=== PATIENT | female | born 1955 | race Two or more races ===

== ENCOUNTER → 2018-10-22 | Outpatient (CLI) | payer OTHER ==
[2018-10-22 12:43] LABS: Urine WBC None Seen /hpf (0 - 5)
[2018-10-22 12:47] LABS: Basophils # (auto) 0 uL; Basophils % (auto) 0.6 % (0.0-2.0); Eosinophils # (auto) 0.1 uL; Eosinophils % (auto) 1.8 % (0.0-7.0); Hematocrit 42.6 % (36.0-46.0); Hemoglobin 13.8 g/dL (12.2-16.2); Lymphocytes # (auto) 1.4 uL; Lymphocytes % (auto) 32.2 % (10.0-50.0); Mean Corpuscular Hemoglobin 28.7 pg (28.0-32.0); Mean Corpuscular Hgb Conc. 32.5 g/dL (32.0-36.0); Mean Corpuscular Volume 88.4 fL (80.0-100.0); Monocytes # (auto) 0.2 uL; Monocytes % (auto) 5.1 % (0.0-12.0); Neutrophils # (auto) 2.5 uL; Neutrophils % (auto) 60.3 % (37.0-80.0); Nucleated Red Blood Cells % 0.2 %; Platelet Count (auto) 263 10^3/uL (140-450); Red Blood Cells 4.82 10^6/uL (4.0-5.20); Red Cell Distribution Width 13.6 % (11.8-14.3); White Blood Cell 4.2 10^3/uL (4.4-10.8)
[2018-10-22 12:59] LABS: Urine Bacteria NONE SEEN /hpf (None Seen); Urine Blood Negative /uL (Negative); Urine Mucus FEW (None Seen); Urine Specific Gravity 1.018 (1.001-1.035)
[2018-10-22 15:22] LABS: Albumin 3.5 g/dL (3.4-5.0); BUN/Creatinine Ratio 15.9; Calcium 8.4 mg/dL (8.5-10.1); Potassium 3.9 mmol/L (3.5-5.1)
[2018-10-22 15:25] LABS: Bilirubin, Total 0.6 mg/dL (0.2-1.0); Total Protein 7.9 g/dL (6.4-8.2)
== END | disposition home or self-care (01) ==
LOC: LAB 12:28
PROVIDERS: ATTEND Family Medicine
DX: Z00.01 Encounter for general adult medical examination with abnormal findings (principal); I10 Essential (primary) hypertension; Z68.39 Body mass index [BMI] 39.0-39.9, adult; Z83.3 Family history of diabetes mellitus; Z87.898 Personal history of other specified conditions; Z82.49 Family history of ischemic heart disease and other diseases of the circulatory system
CPT/HCPCS: 36415; 80053; 80061; 81001; 82306; 83036; 84443; 85025

== ENCOUNTER 2019-12-08 23:53 | Emergency (ER) | payer OTHER ==
[~2019-12-08] VITALS: Ht 165.1 cm; Wt 85.7 kg
[2019-12-09 00:12] VITALS: BP 156/92
== END 2019-12-09 04:15 | disposition home or self-care (01) ==
LOC: ER 23:55
DX: S01.01XA Laceration without foreign body of scalp, initial encounter (principal); I10 Essential (primary) hypertension; Z90.49 Acquired absence of other specified parts of digestive tract; Z90.710 Acquired absence of both cervix and uterus; W20.8XXA Other cause of strike by thrown, projected or falling object, initial encounter; Y93.89 Activity, other specified; Y92.89 Other specified places as the place of occurrence of the external cause; Y99.8 Other external cause status
CPT/HCPCS: 70450

== ENCOUNTER → 2020-08-12 | Outpatient (CLI) | payer OTHER ==
[2020-08-13 05:10] LABS: RPR Non Reactive (Non Reactive)
[2020-08-15 11:55] LABS: Hepatitis A Ab IgM Negative; Hepatitis B Core IgM Negative; Hepatitis B Surface Antigen Negative (Negative); Hepatitis C Antibody Negative (Negative)
== END | disposition home or self-care (01) ==
LOC: LAB 11:18
PROVIDERS: ATTEND Nurse Practitioner Family
DX: Z11.3 Encounter for screening for infections with a predominantly sexual mode of transmission (principal); R30.9 Painful micturition, unspecified; Z72.53 High risk bisexual behavior
CPT/HCPCS: 36415; 80074; 86592; 86703

== ENCOUNTER → 2020-09-19 | Outpatient (CLI) | payer OTHER ==
[2020-09-19 12:51] LABS: Basophils # (auto) 0.1 10 ^3/uL (0-0.2); Basophils % (auto) 1.2 % (0.0-2.0); Eosinophils # (auto) 0.2 10 ^3/uL (0-0.8); Hematocrit 42.9 % (36.0-46.0); Hemoglobin 14.1 g/dL (12.2-16.2); Lymphocytes # (auto) 1.9 10 ^3/uL (0.4-5.4); Lymphocytes % (auto) 35.6 % (10.0-50.0); Mean Corpuscular Hemoglobin 28.6 pg (28.0-32.0); Mean Corpuscular Hgb Conc. 32.8 g/dL (32.0-36.0); Mean Corpuscular Volume 87.1 fL (80.0-100.0); Monocytes # (auto) 0.2 10 ^3/uL (0-1.3); Monocytes % (auto) 4.1 % (0.0-12.0); Neutrophils # (auto) 2.9 10 ^3/uL (1.6-8.6); Neutrophils % (auto) 56.1 % (37.0-80.0); Nucleated Red Blood Cells % 0.2 %; Platelet Count (auto) 280 10^3/uL (140-450); Red Blood Cells 4.92 10^6/uL (4.0-5.20); Red Cell Distribution Width 13.9 % (11.8-14.3); White Blood Cell 5.2 10^3/uL (4.4-10.8)
[2020-09-19 13:02] LABS: Urine Bacteria FEW /hpf (None Seen); Urine Blood Negative /uL (Negative); Urine Mucus FEW (None Seen); Urine Specific Gravity 1.015 (1.001-1.035); Urine WBC 1 /hpf (0 - 5)
[2020-09-19 13:21] LABS: Albumin 3.7 g/dL (3.4-5.0); Calcium 9.1 mg/dL (8.5-10.1); Potassium 4.2 mmol/L (3.5-5.1)
[2020-09-19 13:25] LABS: BUN/Creatinine Ratio 11.8; Bilirubin, Total 0.7 mg/dL (0.2-1.0); Total Protein 8.6 g/dL (6.4-8.2)
== END | disposition home or self-care (01) ==
LOC: LAB 12:28
PROVIDERS: ATTEND Family Medicine
DX: I10 Essential (primary) hypertension (principal); E66.09 Other obesity due to excess calories; F33.0 Major depressive disorder, recurrent, mild; E55.9 Vitamin D deficiency, unspecified; R32 Unspecified urinary incontinence; Z83.3 Family history of diabetes mellitus; Z82.49 Family history of ischemic heart disease and other diseases of the circulatory system; Z87.09 Personal history of other diseases of the respiratory system
CPT/HCPCS: 36415; 80053; 80061; 81001; 82306; 83036; 84443; 85025

== ENCOUNTER 2020-10-17 10:47 | Emergency (ER) | payer MEDICARE, OTHER ==
[~2020-10-17] VITALS: Ht 165.1 cm; Wt 85.7 kg
[2020-10-17 11:45] VITALS: BP 113/56
== END 2020-10-17 14:04 | disposition home or self-care (01) ==
LOC: ER 10:47
DX: U07.1 COVID-19 (principal); J12.89 Other viral pneumonia; I10 Essential (primary) hypertension
CPT/HCPCS: 71045

== ENCOUNTER 2020-10-25 17:35 | Emergency (ER) | payer MEDICARE, OTHER ==
[~2020-10-25] VITALS: Ht 165.1 cm; Wt 86.2 kg
[2020-10-25 17:37] VITALS: BP 118/65
== END 2020-10-25 20:32 | disposition home or self-care (01) ==
LOC: ER 17:37
DX: U07.1 COVID-19 (principal); R06.02 Shortness of breath; R05 Cough; I10 Essential (primary) hypertension; Z90.49 Acquired absence of other specified parts of digestive tract; Z90.710 Acquired absence of both cervix and uterus

== ENCOUNTER 2021-04-16 17:05 | Emergency (ER) | payer MEDICARE, OTHER ==
[~2021-04-16] VITALS: Ht 165.1 cm; Wt 105.2 kg
[2021-04-16 20:00] VITALS: BP 149/83
== END 2021-04-16 20:30 | disposition home or self-care (01) ==
LOC: ER 17:06
DX: S22.089A Unspecified fracture of T11-T12 vertebra, initial encounter for closed fracture (principal); S32.029A Unspecified fracture of second lumbar vertebra, initial encounter for closed fracture; I10 Essential (primary) hypertension; Z90.49 Acquired absence of other specified parts of digestive tract; Z90.710 Acquired absence of both cervix and uterus; W18.39XA Other fall on same level, initial encounter; Y93.01 Activity, walking, marching and hiking; Y92.89 Other specified places as the place of occurrence of the external cause; Y99.8 Other external cause status
CPT/HCPCS: 72040; 72100

== ENCOUNTER → 2021-11-28 | Outpatient (CLI) | payer MEDICARE, OTHER | END | disposition home or self-care (01) | LOC: XYW 13:40 | PROVIDERS: ATTEND Internal Medicine | DX: I07.1 Rheumatic tricuspid insufficiency (principal); I05.0 Rheumatic mitral stenosis; I35.0 Nonrheumatic aortic (valve) stenosis | CPT/HCPCS: 93306 ==

== ENCOUNTER → 2021-12-04 | Outpatient (CLI) | payer MEDICARE, OTHER ==
[~2021-12-04] VITALS: Ht 160 cm; Wt 106.6 kg
[~2021-12-04] MED LIST: ADENOSINE 90 MG in GIVE UN-DILUTED 0 ML IV STA
[2021-12-04 11:04] VITALS: BP 140/82
== END | disposition home or self-care (01) ==
LOC: XY 09:38
PROVIDERS: ATTEND Internal Medicine
DX: R06.02 Shortness of breath (principal); I10 Essential (primary) hypertension; E78.5 Hyperlipidemia, unspecified; Z68.38 Body mass index [BMI] 38.0-38.9, adult
CPT/HCPCS: 78452; 93017; A9500; J0153

== ENCOUNTER → 2022-06-22 | Outpatient (CLI) | payer MEDICARE, OTHER ==
[~2022-06-22] MED LIST changes: -ADENOSINE 90 MG in GIVE UN-DILUTED 0 ML IV STA; +ALBUTEROL SULF 2.5 MG/0.5ML(0.5%) NEB SOLN ONE
== END | disposition home or self-care (01) ==
LOC: RT 09:15
PROVIDERS: ATTEND Internal Medicine Pulmonary Disease
DX: R06.02 Shortness of breath (principal); R05.9 Cough, unspecified
CPT/HCPCS: 94060; 94727; 94729

== ENCOUNTER 2023-10-10 11:20 | Emergency (ER) | payer MEDICARE, OTHER ==
[~2023-10-10] VITALS: Ht 165.1 cm; Wt 105.0 kg
[2023-10-10] MEDS ORDERED: TRAM50TA2 PO (15:01)
[2023-10-10 15:10] VITALS: BP 154/97; PULSE 81; RESP 14; TEMP 97.5; O2SAT 98
== END 2023-10-10 15:24 | disposition home or self-care (01) ==
LOC: ER 11:20
DX: M71.22 Synovial cyst of popliteal space [Baker], left knee (principal); G89.29 Other chronic pain; M54.50 Low back pain, unspecified; I10 Essential (primary) hypertension; Z90.49 Acquired absence of other specified parts of digestive tract; Z90.710 Acquired absence of both cervix and uterus; Z79.899 Other long term (current) drug therapy
CPT/HCPCS: 72100; 93971

== ENCOUNTER 2025-04-07 10:55 | Outpatient (CLI) | payer MEDICARE, OTHER ==
[~2025-04-07 10:55] MED LIST changes: -ALBUTEROL SULF 2.5 MG/0.5ML(0.5%) NEB SOLN ONE; +TRAM50TA2 PO
[2025-04-07 11:22] LABS: Urine Bacteria FEW /hpf (None Seen); Urine Blood Negative /uL (Negative); Urine Clarity Clear (Clear); Urine Color Light-Yellow (Yellow); Urine Protein, UAD Negative (Negative); Urine Specific Gravity 1.016 (1.001-1.035); Urine Squamous Epithelial Cell FEW /hpf (<5); Urine Urobilinogen Normal (Negative); Urine WBC 1 /HPF (0-5)
[2025-04-07 11:39] LABS: Alanine Aminotransferase 17 U/L (7-40); Albumin 4.3 g/dL (3.2-4.8); Anion Gap 6 (5-15); Aspartate Aminotransferase 13 U/L (13-40); BUN/Creatinine Ratio 13.3 (10.0-20.0); Blood Urea Nitrogen 12 mg/dL (9-23); Calcium 9.7 mg/dL (8.7-10.4); Carbon Dioxide 27 mmol/L (20-31); Glucose 91 mg/dL (74-106); Potassium 4.2 mmol/L (3.5-5.1); Sodium 144 mmol/L (136-145); Total Protein 7.4 g/dL (5.7-8.2); Triglycerides 125 mg/dL (< 150)
[2025-04-07 11:40] LABS: Bilirubin, Total 0.4 mg/dL (0.2-1.0); Cholesterol 190 mg/dL (< 200); HDL Cholesterol 45 mg/dL (40-59)
[2025-04-07 11:42] LABS: Alkaline Phosphatase 122 U/L (46-116); Chloride 111 mmol/L (98-107); LDL Cholesterol 122 mg/dL (< 100)
== END 2025-04-07 17:00 | disposition home or self-care (01) ==
LOC: LAB 10:55
PROVIDERS: ATTEND Nurse Practitioner
DX: I10 Essential (primary) hypertension (principal); E78.5 Hyperlipidemia, unspecified
CPT/HCPCS: 36415; 80053; 80061; 81001; 84443

== ENCOUNTER → 2025-07-10 | Day surgery (SDC) | payer OTHER ==
[2025-07-07 11:25] LABS: Hematocrit 42.4 % (36.0-46.0); Hemoglobin 14.0 g/dL (12.2-16.2); Mean Corpuscular Hemoglobin 28.8 pg (28.0-32.0); Mean Corpuscular Volume 87.0 fL (80.0-100.0); Nucleated Red Blood Cells % 0.0 %
[2025-07-07 11:36] LABS: INR 0.97 (0.9-1.15); Partial Thromboplastin Time 28.3 SEC (24.5-34.5); Prothrombin Time 10.3 sec (9.3-11.8)
[2025-07-07 11:53] LABS: Alanine Aminotransferase 21 U/L (7-40); Albumin 4.3 g/dL (3.2-4.8); Anion Gap 8 (5-15); BUN/Creatinine Ratio 16.3 (10.0-20.0); Bilirubin, Total 0.3 mg/dL (0.2-1.0); Blood Urea Nitrogen 15 mg/dL (9-23); Calcium 8.9 mg/dL (8.7-10.4); Carbon Dioxide 22 mmol/L (20-31); Glucose 89 mg/dL (74-106); Potassium 4.0 mmol/L (3.5-5.1); Sodium 141 mmol/L (136-145); Total Protein 7.6 g/dL (5.7-8.2)
[2025-07-07 11:55] LABS: Alkaline Phosphatase 138 U/L (46-116); Chloride 111 mmol/L (98-107)
[~2025-07-10] VITALS: Ht 165.1 cm; Wt 105.2 kg
[~2025-07-10] MED LIST changes: +DULO20CA PO; +IBU600T PO; +LOSA-533 PO; +MAGN400T40 PO; -TRAM50TA2 PO
[2025-07-10] MEDS: fentaNYL CITRATE 100 MCG/2 ML VL ONE (13:58)
[2025-07-10] MEDS: MIDAZOLAM HCL 2MG/2ML 2ml VIAL (1mg/ml) ONE (13:58)
--- NOTE | 2025-07-10 14:15 | DVHNC2 ---
Procedure - DATE OF PROCEDURE: 2024 SURGEON: Shonda Chatman MD REFERRING PROVIDER: Dr Madera PROCEDURE PERFORMED: 1. Colonoscopy with moderate sedation 2. Colonoscopy with cold biopsy polypectomy INDICATIONS FOR THE PROCEDURE: The patient is a 69-year-old female who presents for outpatient colonoscopy for screening PRE-PROCEDURE DIAGNOSIS: 1. Colon cancer screening POSTPROCEDURE DIAGNOSIS 1. Internal and external hemorrhoids 2. Mild diverticulosis 3. Small transverse colon polyp removed with cold biopsy polypectomy MEDICATIONS USED: 5 mg of Versed IV and 100mcg of fentanyl IV DETAILS OF THE PROCEDURE: Informed consent was obtained after risks, benefits, and alternatives, were discussed at length with the patient. The patient gave consent to the procedure as well as the medication used for sedation. The patient was placed in the left lateral decubitus position. Digital rectal exam showed internal and external hemorrhoids. An Olympus variable torsion pediatric colonoscope was inserted into the rectu forceps m and advanced to the cecum. The cecum was identified by the ileocecal valve and the appendiceal orifice. [place] bowel prep score of 8 was noted. The scope was then withdrawn. There were no large polyps, masses, strictures, or arteriovenous malformation seen. The patient had mild diverticulosis. There was one small 3 mm polyp in the transverse colon removed with cold biopsy forceps. Retroflexion showed internal hemorrhoids. More than 6 minutes withdrawal time. The patient tolerated the procedure well. Start time: 1403. Cecum time: 1405 End time: 1412 IMPRESSION: Internal hemorrhoids, small external hemorrhoids ,mild diverticulosis and one small colon polyp RECOMMENDATIONS: 1. Follow up in GI clinic for procedure and pathology results 2. High-fiber diet 3. Repeat colonoscopy in five years unless otherwise indicated by symptoms or family history I WOULD LIKE TO THANK DR. MADERA FOR THIS REFERRAL SHONDA CHATMAN MD Jul 10, 2025 14:15
[2025-07-10 14:16] VITALS: PULSE 74; RESP 16; TEMP 97.2; O2SAT 97
[2025-07-10 15:05] VITALS: BP 140/84; PULSE 71; RESP 16; O2SAT 97
== END | disposition home or self-care (01) ==
LOC: GI 11:42
PROVIDERS: ATTEND Specialist
DX: Z12.11 Encounter for screening for malignant neoplasm of colon (principal); K57.30 Diverticulosis of large intestine without perforation or abscess without bleeding; K64.8 Other hemorrhoids; K64.4 Residual hemorrhoidal skin tags; D12.3 Benign neoplasm of transverse colon; I10 Essential (primary) hypertension; Z90.710 Acquired absence of both cervix and uterus; Z90.49 Acquired absence of other specified parts of digestive tract; Z98.891 History of uterine scar from previous surgery
CPT/HCPCS: 36415; 45380; 80053; 85025; 85610; 85730; 88305; J2250; J3010